=== PATIENT | female | born 1945 ===

== ENCOUNTER 2020-08-02 06:34 | Day surgery (SDC) | payer OTHER ==
[~2020-08-02 06:34] MED LIST: COZAAR50 MG PO; SYNTHROID100 MCG PO; TENORMIN50 M1 PO
== END 2020-08-02 15:35 | disposition home or self-care (01) ==
LOC: CIR.AMB 06:34
PROVIDERS: ATTEND Orthopaedic Surgery Hand Surgery
DX: G56.01 Carpal tunnel syndrome, right upper limb (principal); Z20.822 Contact with and (suspected) exposure to COVID-19